=== PATIENT | male | born 1945 | race Caucasian/White ===

== ENCOUNTER 2024-10-20 10:26 | Emergency (ER) | payer MEDICARE, SELFPAY ==
[2024-10-20 10:27] VITALS: BP 124/75; PULSE 63; RESP 17; TEMP 36.4; O2SAT 99; BMI 24.7
--- NOTE | 2024-10-20 10:36 | EKG12_ITS ---
Test Reason : DIZZY Blood Pressure : */* mmHG Vent. Rate : 61 BPM Atrial Rate : 61 BPM P-R Int : 176 ms QRS Dur : 148 ms QT Int : 472 ms P-R-T Axes : 56 10 90 degrees QTcB Int : 475 ms Normal sinus rhythm Left bundle branch block Abnormal ECG Confirmed by Edwin Kelly ([id number]), sports editor KASSI NIX ([id number]) on 10/22/2024 9:57:22 AM Referred By: Confirmed By: Edwin Kelly
--- NOTE | 2024-10-20 10:36 | CT_ITS ---
EXAM: NONCONTRAST CT SCAN OF THE HEAD CLINICAL HISTORY: Dizziness COMPARISON: None TECHNIQUE: Serial axial series through the head were obtained without contrast. 2-D coronal and sagittal reformats were then obtained. FINDINGS: Brain: There is coarse calcification at the periphery of the right cerebellar hemisphere with associated low-density measuring a proximally 1.3 x 1.7 cm, axial image 12/46, with differential including remote infarct. There is no acute large territorial infarct, intracranial hemorrhage, midline shift or mass effect. There are atherosclerotic vascular calcifications involving the bilateral carotid siphons. The sella and pineal gland regions appear unremarkable. There is no evidence of cerebellar tonsillar herniation. Ventricles: There is no acute hydrocephalus. Basilar cisterns are patent. Paranasal sinuses: Well-aerated Mastoid air cells: Well-aerated. Calvarium: The bony calvarium is intact. Orbits: The bilateral globes are symmetric, without retrobulbar compressive mass lesion or hemorrhage. CT/Brain/Head without Contrast IMPRESSION: There is coarse calcification at the periphery of the right cerebellar hemisphe re with associated low-density measuring a proximally 1.3 x 1.7 cm, axial image 12/46, with differential including remote infarct. MRI with and without contrast could be helpful to confirm benign features. Reading Location: [facility]
--- NOTE | 2024-10-20 10:36 | RAD_ITS ---
PROCEDURE: CHEST 1 VIEW (PORTABLE) 10/20/2024 REASON FOR EXAM: SHORTNESS OF BREATH Dizziness. TECHNIQUE: Frontal view of the chest. COMPARISON: None FINDINGS: Hardware: EKG electrodes are seen. Heart: The heart size is normal. Lungs: The lungs are clear. Bones: Degenerative changes are identified within the thoracic spine. Other: Atherosclerotic calcification of the aortic arch. RAD/Chest 1 View (Portable) IMPRESSION: No Acute Findings. Reading Location: [id number]
--- NOTE | 2024-10-20 10:37 | EX.ED.DYSGE1 ---
HPI History of Present Illness Chief Complaint: Dizziness Narrative Narrative: 79-year-old male with past medical history of left bundle branch block on EKG presents with lightheadedness and dizziness that began around 10 AM today. He and his son relate history that he has problems with celiac disease and has had intermittent diarrhea but is usually good with his diet. Patient states that today, he felt like he was going to have an episode of diarrhea, and went to the bathroom. He felt very lightheaded and dizzy. While he denies any vertiginous type symptoms, he did state that he felt as if he were going to pass out and felt off balance, and had a little bit of both lightheadedness and dizziness. He denies any headache or any paresthesias of his arms or legs, no prodromal chest pain or shortness of breath. His son states that he is being worked up because he has had shortness of breath and lightheadedness associated with exertion, and he was found to have a left bundle branch block on EKG. Patient did state that he did have an episode of diarrhea, and when he was trying to get back to the bed, he felt very lightheaded and weak. No recent fevers or chills, no cough, no problems with urination. [facility] Medical History Hypertension High blood cholesterol Left bundle branch block Celiac disease Diabetes mellitus Home Medications ?Medication ?Instructions ?Recorded ?Last Taken ?Type acetaminophen 325 mg tablet 650 mg PO Q4H PRN pain 10/20/24 Unknown History (Aminofen) atorvastatin 20 mg tablet 20 mg PO QHS cholesterol 10/20/24 10/19/24 History flaxseed oil 1,000 mg capsule 1,000 mg PO DAILY 10/20/24 10/20/24 History fluoxetine 40 mg capsule 40 mg PO BID 10/20/24 10/20/24 History glipizide 5 mg tablet, extended 5 mg PO DAILY 10/20/24 10/20/24 History release 24 hr glucosamine sulfate 2KCl 500 1 tab PO TID 10/20/24 10/20/24 History mg-msm 166.6 mg-chondroitin 400 mg tablet levothyroxine 75 mcg tablet 75 mcg PO DAILY disorder of 10/20/24 10/20/24 History thyroid gland lisinopril 10 mg tablet 10 mg PO DAILY 10/20/24 10/20/24 History nitroglycerin 0.4 mg sublingual 0.4 mg sublingual Q5M PRN chest 10/20/24 Unknown History tablet pain omeprazole 20 mg capsule,delayed 20 mg PO DAILY 10/20/24 10/20/24 History release Allergy/AdvReac Type Severity Reaction Status Date / Time gluten Allergy Abd Verified 10/20/24 10:31 cramps/diarrhea Family History no significant family his Surgical History no surgical history Social History Smoking Status: Never smoker ROS ROS ED ROS Narrative Review of systems positive for lightheadedness and dizziness. No headache. No chest pain or abdominal pain. Had episode of diarrhea. No dysuria or hematuria. No nausea or vomiting. EXAM Physical Exam Narrative Exam Narrative: Afebrile. Vital signs noted. Nontoxic-appearing. Cardiovascular examination reveals a regular rate and rhythm. Lungs are clear to auscultation bilaterally. The abdomen is soft and nontender without guarding or rebound. Positive bowel sounds. Neurological examination is nonfocal, nonlateralizing. Const Vital Signs: 10/20/24 10:27 10/20/24 12:26 10/20/24 14:00 Temperature 97.6 F L Temperature Source Oral Pulse Rate 63 63 61 Pulse Rate [Lying] Pulse Rate [Sitting (for 1 minute prior to obtaining)] Pulse Rate [Standing (for 1 minute prior to obtaining)] Respiratory Rate 17 14 12 Blood Pressure 124/75 H 138/87 H 138/87 H Blood Pressure [Lying] Blood Pressure [Sitting (for 1 minute prior to obtaining)] Blood Pressure [Standing (for 1 minute prior to obtaining)] Blood Pressure Mean 91 104 104 Blood Pressure Mean [Lying] Blood Pressure Mean [Sitting (for 1 minute prior to obtaining)] Blood Pressure Mean [Standing (for 1 minute prior to obtaining)] Pulse Ox 99 100 100 Oxygen Delivery Method Room Air Room Air 10/20/24 14:16 10/20/24 15:15 Temperature 98.4 F Temperature Source Pulse Rate 82 Pulse Rate [Lying] 63 Pulse Rate [Sitting (for 1 minute prior to obtaining)] 64 Pulse Rate [Standing (for 1 minute prior to obtaining)] 77 Respiratory Rate 14 Blood Pressure 138/82 H Blood Pressure [Lying] 129/85 H Blood Pressure [Sitting (for 1 minute prior to obtaining)] 128/87 H Blood Pressure [Standing (for 1 minute prior to obtaining)] 135/86 H Blood Pressure Mean 100 Blood Pressure Mean [Lying] 99 Blood Pressure Mean [Sitting (for 1 minute prior to obtaining)] 100 Blood Pressure Mean [Standing (for 1 minute prior to obtaining)] 102 Pulse Ox 100 Oxygen Delivery Method MDM MDM MDM Narrative Medical decision making narrative: Differential diagnosis includes but not limited to orthostatic hypotension versus dehydration versus other electrolyte imbalance versus intravascular volume depletion. I have low suspicion for cerebellar stroke because his examination is nonfocal and nonlateralizing and he is not having vertiginous type symptoms. Comprehensive workup was pursued. Infectious cause is also in the differential including pneumonia versus urinary tract infection. EKG was obtained and interpreted by myself independently as normal sinus rhythm at 61 bpm with a left bundle branch block that the patient is being worked up for. No acute ST changes. No STEMI. I reviewed his laboratory work and WBC count normal at 5.9 with hemoglobin stable at 11.9, hematocrit 35.6, platelet count normal at 230. Electrolyte panel shows normal sodium of 134 and potassium 4.9 with CO2 of 21.5, BUN slightly elevated at 40 with a normal creatinine of 1.17 which could be considered mild dehydration. Magnesium normal at 1.7. LFTs normal. Urinalysis on microanalysis is negative for ketones, nitrites, and negative leukocytes. His microanalysis shows no evidence of infection with 0-5 white cells. I do not feel antibiotics are indicated. CT of the brain radiology report reviewed and they comment on the calcified area in the right cerebellum measuring 1.3 x 1.7 cm. The differential does include remote infarct. While radiology suggests MRI with and without contrast for further classification, I do not feel that needs to be done on an emergent basis, nor do I feel that he requires admission for this. Orthostatics are negative. As patient is feeling improved upon repeat examination, I feel he can probably be discharged to follow-up with his primary care provider. He may have had more of a vasovagal near syncope. He was able to ambulate in the ED without difficulty. Through shared decision making discussion with the family, he will be discharged to follow-up for further workup of his new left bundle branch block which he is already aware. Disposition is discharged home in stable condition. History & Record Review Discussion w/independent historian: Patient and Family Lab Data Attestation: I reviewed the patient's lab results. Labs: Laboratory Results - last 24 hr 10/20/24 10/20/24 10:50 13:13 WBC 5.9 RBC 3.80 L Hgb 11.9 L Hct 35.6 L MCV 93.7 MCH 31.3 MCHC 33.4 RDW Std Deviation 45.1 H RDW Coeff of Cirilo 13.2 Plt Count 230 MPV 10.0 Immature Gran % (Auto) 0.500 Neut % (Auto) 76.9 H Lymph % (Auto) 11.4 L Cache % (Auto) 8.8 Eos % (Auto) 1.9 Baso % (Auto) 0.5 Absolute Neuts (auto) 4.5 Absolute Lymphs (auto) 0.67 L Nucleated RBC % 0 Sodium 134 Potassium 4.9 Chloride 103 Carbon Dioxide 21.5 Anion Gap 9 BUN 40 H Creatinine 1.17 Estim Creat Clear Calc 54.59 Est GFR (MDRD) Non-Af 64 BUN/Creatinine Ratio 33.8 H Glucose 237 H Calcium 9.5 Magnesium 1.7 Total Bilirubin 0.43 AST 30 ALT 33 Alkaline Phosphatase 100 Total Protein 7.6 Albumin 3.9 Globulin 3.6 Albumin/Globulin Ratio 1.1 Urine Color Yellow Urine Clarity Clear Urine pH 6.0 Ur Specific [place] 1.015 Urine Protein 30 H Urine Glucose (UA) 250 H Urine Ketones Negative Urine Occult Blood Negative Urine Nitrite Negative Urine Bilirubin Negative Urine Urobilinogen Normal Ur Leukocyte Esterase Negative Urine RBC 0 SEEN Urine WBC 0-5 SEEN Ur Squamous Epith Cells 0 SEEN Urine Bacteria 0 SEEN Urine Mucus 0 SEEN Radiography Diagnostic Testing: Clinical Impression(s) from Imaging Studies Brain CT 10/20/24 10:36 IMPRESSION: There is coarse calcification at the periphery of the right cerebellar hemisphere with associated low-density measuring a proximally 1.3 x 1.7 cm, axial image , with differential including remote infarct. MRI with and without contrast could be helpful to confirm benign features. [facility] 10/20/24 10:36 IMPRESSION: No Acute Findings. Reading Location: [id number] Discharge Plan Triage Chief Complaint: Dizziness ED Provider: Indar Gonzalez Dx/Rx/DC Orders Clinical Impression: Lightheadedness, Near syncope Instructions: ED Dizziness, Uncertain Cause, ED Near-Fainting, Uncertain Cause Prescriptions: No Action fluoxetine 40 mg capsule 40 mg PO BID atorvastatin 20 mg tablet 20 mg PO QHS glipizide 5 mg tablet extended release 24hr 5 mg PO DAILY levothyroxine 75 mcg tablet 75 mcg PO DAILY lisinopril 10 mg tablet 10 mg PO DAILY nitroglycerin 0.4 mg tablet, sublingual 0.4 mg sublingual Q5M PRN (Reason: chest pain) omeprazole 20 mg capsule,delayed release(DR/EC) 20 mg PO DAILY acetaminophen [Aminofen] 325 mg tablet 650 mg PO Q4H PRN (Reason: pain) glucosamine [id number] 500-166.6-400 mg tablet 1 tab PO TID flaxseed oil 1,000 mg capsule 1,000 mg PO DAILY Primary Care Provider: Bandar Ford Referrals: Bandar Ford MD [Primary Care Provider] - 3-5 Days if not improving Activity Restrictions/Additional Instructions: You have a calcification in the right cerebellum that may require outpatient MRI imaging. Return with increased lightheadedness or dizziness, nausea and vomiting, fever, new or worsening symptoms. Follow-up with your primary care provider. Also follow-up with cardiology for your left bundle branch block. Print Language: [place] Disposition Disposition: Home, Self Care Discharge Date/Time: 10/20/24 15:16
[2024-10-20] MEDS: 0.9% Normal Saline (1000mL) 1,000 ML 1000 ML IV (10:57)
[2024-10-20 11:04] LABS: Absolute Lymphocyte Count 0.67 X10^3/uL (0.83-4.51); Absolute Neutrophil Count 4.5 X10^3/uL (2.0-7.7); Basophil# 0.03 X10^3/uL; Basophil% 0.5 % (0-1); Eosinophil# 0.11 X10^3/uL; Eosinophils% 1.9 % (0-5); Hematocrit 35.6 % (40-54); Hemoglobin 11.9 g/dL (13.0-16.5); Lymphocyte # 0.67 X10^3/ul (0.83-4.51); Lymphocyte % 11.4 % (19-41); Mean Corp Hgb Conc 33.4 g/dL (32-36); Mean Corpuscular Hgb 31.3 pg (27.0-32.0); Mean Corpuscular Volume 93.7 fL (80-94); Monocyte# 0.52 X10^3/uL; Monocyte% 8.8 % (0-10); NRBC Flagged by Analyzer 0 % (0-5); Neutrophil # 4.53 X10^3/uL (2.7-7.7); Neutrophil % 76.9 % (47-70); Platelet Count 230 K/mm3 (150-450); RBC Distribution Width CV 13.2 % (11.6-14.6); RBC Distribution Width SD 45.1 fl (35.1-43.9); White Blood Count 5.9 K/mm3 (4.4-11.0)
[2024-10-20 11:26] LABS: ALB/GLOB Ratio 1.1 RATIO (0.9-2.4); AST(SGOT) 30 U/L (<=37); Alanine Aminotransfer ALT/SGPT 33 U/L (<=46); Albumin, Serum 3.9 g/dL (3.4-4.8); Alkaline Phosphatase 100 U/L (40-129); Anion Gap 9 (5-15); BUN 40 mg/dL (4-19); BUN/Creat Ratio 33.8 RATIO (10-20); Calcium,Total 9.5 mg/dL (7.6-11.0); Carbon Dioxide 21.5 mmol/L (21.0-32.0); Chloride 103 mmol/L (98-108); Creatinine, Serum 1.17 mg/dL (0.70-1.20); EST Glomerular Filtration Rate 64 (>60); Estimated Creatinine Clearance 54.59 ml/min (50-250); Globulin 3.6 g/dL (2.2-4.2); Glucose 237 mg/dL (70-99); Magnesium 1.7 mg/dL (1.5-2.2); Potassium 4.9 mmol/L (3.3-5.1); Protein, Total 7.6 g/dL (5.9-8.4); Sodium Level 134 mmol/L (133-145); Total Bilirubin 0.43 mg/dL (0.00-1.30)
[2024-10-20 12:26] VITALS: BP 138/87; PULSE 63; RESP 14; O2SAT 100
[2024-10-20 13:21] LABS: Bacteria 0 SEEN /hpf (None Seen); Mucous, Urine 0 SEEN /hpf (<or=2+); Red Blood Cells-Urine 0 SEEN /hpf (0-5); Squamous Epithelial Cells - UA 0 SEEN /hpf (0-5)
[2024-10-20 14:00] VITALS: BP 138/87; PULSE 61; RESP 12; O2SAT 100
[2024-10-20 14:04] LABS: Color, Urine Yellow (Yellow); Glucose, Dipstick 250 mg/dl (Normal); Ketone-Dipstick Negative (Negative); Leukocyte Esterase-Dipstick Negative /ul (Negative); Nitrite-Dipstick Negative (Negative); Occult Blood-Urine Negative /ul (Negative); Protein-Dipstick 30 mg/dl (Negative); Specific Gravity, Urine 1.015 (1.002-1.030); Urine Bilirubin Dipstick Negative (Negative); Urine Clarity Clear (Clear); Urine Urobilinogen Normal (Normal)
[2024-10-20 14:16] VITALS: BP 128/87; BP 129/85; BP 135/86; PULSE 63; PULSE 64; PULSE 77
[2024-10-20 14:54] LABS: White Blood Cells 0-5 SEEN /hpf (0-5)
[2024-10-20 15:15] VITALS: BP 138/82; PULSE 82; RESP 14; TEMP 36.9; O2SAT 100
== END 2024-10-20 15:16 | disposition home or self-care (01) ==
PROVIDERS: Emergency Provider Emergency Medicine; PCP Internal Medicine; Visit Provider Emergency Medicine
DX: R42 Dizziness and giddiness (principal); E11.9 Type 2 diabetes mellitus without complications; E78.00 Pure hypercholesterolemia, unspecified; R06.02 Shortness of breath; R19.7 Diarrhea, unspecified; K90.0 Celiac disease; Z79.899 Other long term (current) drug therapy; Z79.84 Long term (current) use of oral hypoglycemic drugs; Z79.890 Hormone replacement therapy; I44.7 Left bundle-branch block, unspecified
CPT/HCPCS: 70450; 71045; 80053; 81001; 83735; 85025; 93005; 96360; 96361; 99285; A4216